=== PATIENT | female | born 1970 | race Caucasian/White ===

== ENCOUNTER 2021-05-08 07:57 | Outpatient (CLI) | payer BC, SELFPAY ==
--- NOTE | ~2021-05-08 | MM_ITS ---
EXAMINATION: MM screening giovany BI w erich HISTORY: Screening mammogram TECHNIQUE: Craniocaudal and mediolateral oblique 3-D tomosynthesis images were obtained and synthetic 2-D images were generated. CAD analysis was submitted and interpreted. COMPARISON: May 10, 2008 bilateral screening mammogram BREAST PARENCHYMAL COMPOSITION: There are scattered areas of fibroglandular density. FINDINGS: There is no evidence of suspicious mass, calcification, or architectural distortion to sugg est malignancy in either breast. There has been no suspicious interval change. IMPRESSION: 1. No mammographic evidence of malignancy. 2. Recommend routine screening mammography in one year. BI-RADS Category 1: Negative Reviewed, dictated and finalized at location A. [employer]
== END 2021-05-08 07:58 | disposition home or self-care (01) ==
LOC: ANHIMG 08:01
PROVIDERS: PCP Family Medicine Adolescent Medicine; Visit Provider Obstetrics & Gynecology
DX: Z12.31 Encounter for screening mammogram for malignant neoplasm of breast (principal)
CPT/HCPCS: 77063; 77067

== ENCOUNTER 2022-06-29 17:27 | Outpatient (CLI) | payer BC, SELFPAY ==
--- NOTE | ~2022-06-29 | MM_ITS ---
EXAMINATION: MM screening giovany BI w erich HISTORY: Screening mammogram TECHNIQUE: Craniocaudal and mediolateral oblique 3-D tomosynthesis images were obtained and synthetic 2-D images were generated. CAD analysis was submitted and interpreted. COMPARISON: 05/08/2021, 05/10/2008 BREAST PARENCHYMAL COMPOSITION:There are scattered areas of fibroglandular density. FINDINGS: No suspicious mass, calcification, or architectural distortion are identified in either dahiana ast to suggest malignancy. There has been no suspicious interval change. IMPRESSION: No mammographic evidence of malignancy. Recommend routine screening mammography in one year. BI-RADS Category 1: Negative Reviewed, dictated and finalized at location .
== END 2022-06-29 17:28 | disposition home or self-care (01) ==
PROVIDERS: Visit Provider Obstetrics & Gynecology
DX: Z12.31 Encounter for screening mammogram for malignant neoplasm of breast (principal)
CPT/HCPCS: 77063; 77067

== ENCOUNTER 2022-11-23 01:00 | Day surgery (SDC) | payer BC, SELFPAY ==
[2022-11-18 10:08] VITALS: BMI 42.3
--- NOTE | 2022-11-18 10:23 | PC.NURSE ---
Report to the Outpatient Waiting Room, entrance under the green pavilion located off [facility], at time 1130_ on date 11/23/22 Planned Procedure Time: _1330. Time changes happen often and if your time is changed the preop area will call you the afternoon before. - You and your visitor will be asked to self-screen and do not enter if you have any COVID symptoms. - A mask is optional within the hospital at this time. Patients may have clear liquids (water, carbonated beverages, clear teas, apple juice) until 3 hours prior to surgery with a maximum of 20 ounces. - No food from midnight until time of surgery - Infants may have breast milk until 4 hours before surgery, formula 6 hours prior to surgery. - Children will be allowed to drink immediately following surgery. If applicable, please bring a bottle or sippy cup to assist with drinking. Juice, water, soda, and popsicles are readily available. For infants on formula, please bring formula the day of surgery. Pacifiers are allowed. Take the following medications with a SIP of water the morning of surgery: _levothyroxine DO NOT STOP ANY OF YOUR OTHER PRESCRIPTION MEDICATIONS PRIOR TO SURGERY ?EXCEPT THE FOLLOWING Medications to discontinue per physician _Vitamins Date to take last dose__11/20/22___ Please no make-up, nail cambodian, hairspray, perfume, deodorant, or body powder the day of surgery. No jewelry (including any body piercings) or valuables the day of surgery, leave them at home. Please take a shower or bath the night before, or the morning of, surgery with an antibacterial soap. Wear comfortable, loose fitting clothing. Children are encouraged to wear pajamas. - Jewelry must be removed prior to entering the operating room. Rings and piercings that are not removed may be cut off. - The hospital will not accept responsibility for valuables. - Please leave all valuables, including medications, at home the day of surgery. If you are going home after surgery, a licensed passenger coach driver must drive you home. - NO public transportation without another adult if you receive anesthesia. - We recommend that an adult stay with you for 24 hours following discharge. - We also recommend that you do not drive, make important decision, drink alcoholic beverages, or take any drugs that were not prescribed by your health care provider for at least 24 hours after your discharge time. For Pediatric surgeries, we recommend two adults accompany the child home. Follow any additional instructions given to you from your surgeon. If you or anyone in your household have experienced Covid symptoms in the past week, please notify your surgeon or the nurse liaison at the phone number below for possible testing. Telephone instructions given to Lashawn Wattsand asked if any additional questions and then verbalized understanding. Patient advised to call surgeon office or pre surgery nurse liaison [phone] if any additional questions.
--- NOTE | 2022-11-23 11:29 | PM.IMHP ---
H&P: HPI History of Present Illness Date/Time: 11/23/22 11:29 Chief Complaint: Heavy bleeding Narrative: 51 y/o who had no bleeding for several months, then resumed monthly menses. Now her menses are heavy and irregular. Ultrasound exam shows an endometrial thickness of 8.6mm. She is here for hysterocopy for D&C. Review of Systems Review of Systems: All systems reviewed & are unremarkable except as noted in HPI and below PMFSH Past Medical History Medical History History of hypothyroidism Surgical History Surgical History History of cervical discectomy History of tubal ligation Social History Social History Smoking status: Never smoker Alcohol intake: never Substance use: never Living arrangements: with family Spiritual care concerns: No Meds Home Medications and Allergies Home Medications Medication Instructions Recorded Confirmed Type calcium carb-vit D3-minerals 600 1 tablet PO DAILY 11/18/22 11/18/22 History mg calcium-400 unit tablet levothyroxine 137 mcg tablet 137 mcg PO DAILY 11/18/22 11/18/22 History multivit-iron 18 mg-folic acid 400 1 tablet PO DAILY 11/18/22 11/18/22 History mcg-calcium 500 mg-minerals tablet (Daily Multiple For Women) Allergies Allergy/AdvReac Type Severity Reaction Status Date / Time Penicillins Allergy Unknown HIVES, Verified 03/30/16 08:23 SWELLING Exam Const: Orientation/consciousness: patient oriented x3 Other: Well-developed, well-nourished female in no acute distress. Neck: Thyroid: thyroid normal Lymphatic: no lymphadenopathy noted (in neck, axilla or inguinal nodes) Resp: Effort & Inspection: normal respiratory effort Auscultation: clear to auscultation bilaterally Cardio: Rate: regular rate Rhythm: regular rhythm Heart sounds: S1 normal heart sound present and S2 normal heart sound present GI: Other: ABD: Soft, nontender, nondistended. No guarding or rebound tenderness. No hepatosplenomegaly. : General: Yes no CVA tenderness Other: External genitalia: normal female hair distribution, without lesion. Urethral meatus: no lesion, non prolapsed. Bladder: no mass, nontender Vagina: well-estrogenized, without lesion or discharge. No cystocele or rectocele. Cervix: no lesion or discharge. Uterus: small, anteverted, freely mobile, nontender Adnexa: no mass or tenderness. Anus/perineum: no lesions, nontender Back/Spine/Pelvis: Back: no CVA tenderness Skin: General skin exam: normal color and no rashes or lesions noted Neuro: General: patient oriented x3 Extrem: Other: Extremities: nontender with no edema Psych: Mental Status: mental status grossly normal Affect: normal affect Assessment and Plan Assessment and plan (1) Menometrorrhagia: Code(s): N92.1 - Excessive and frequent menstruation with irregular cycle Status: Acute Assessment and Plan: A: Irregular and heavy perimenopausal vaginal bleeding with a thickened endometrial complex on ultrasound. P: We discussed medical as well as surgical management options. She opts for the latter. Specifically, I have offered her a hysteroscopy with dilation and sharp curettage. She understands risks of surgery to include risks of anesthesia, risks of pain, infection, bleeding, blood products, thromboembolic phenomena and damage to adjacent structures such as bowel, bladder, ureters, blood vessels and nerves. She understands all these risks and elects to proceed with surgery. (2) Abnormal pelvic ultrasound: Code(s): R93.89 - Abnormal findings on diagnostic imaging of other specified body structures Status: Acute
--- NOTE | 2022-11-23 11:39 | WPDHPUPDATE1 ---
History and Physical Update Update Date/Time: 11/23/22 11:39 History and Physical has been reviewed, including an updated exam of the patient. There are NO changes in the patient's condition. Risks, benefits, and alternatives have been discussed and questions answered. Patient agrees to proceed with procedure.
[2022-11-23] MEDS: LACTATED RINGERS 1,000 ML 30 ML IV CONT (12:00)
[2022-11-23 12:12] VITALS: BP 152/85; PULSE 90; RESP 16; TEMP 36.6; O2SAT 100
[2022-11-23] MEDS: ACETAMINOPHEN 500 MG TABLET 1000 MG PO (12:14)
[2022-11-23] MEDS: LIDOCAINE HCL 1% LOCAL INJ 20 ML VIAL 10 ML INFILTRATE (12:20)
--- NOTE | 2022-11-23 12:24 | P.PNAN_ITS ---
Anes - Initial Pre Proc Eval Procedure: Operation Date: 11/23/22 12:45 Proposed Procedures p Hysteroscopy Dilation and Curettage - Chris Gardner MD Date/Time: 11/23/22 12:24 Surgeon: Chris Gardner MD Pre Op Diagnosis: irregular bleeding Patient Data Age: 51 Gender: F Height: 1.57 m Weight: 105 kg Last Vital Signs Temp 36.6 C 11/23/22 12:12 Pulse 90 11/23/22 12:12 Resp 16 11/23/22 12:12 BP 152/85 H 11/23/22 12:12 Pulse Ox 100 11/23/22 12:12 O2 Del Method Room Air 11/23/22 12:12 Allergies Allergy/AdvReac Type Severity Reaction Status Date / Time Penicillins Allergy Unknown HIVES, Verified 11/23/22 12:11 SWELLING Home Medications Medication Instructions Recorded Confirmed Type calcium carb-vit D3-minerals 600 1 tablet PO DAILY 11/18/22 11/18/22 History mg calcium-400 unit tablet levothyroxine 137 mcg tablet 137 mcg PO DAILY 11/18/22 11/18/22 History multivit-iron 18 mg-folic acid 400 1 tablet PO DAILY 11/18/22 11/18/22 History mcg-calcium 500 mg-minerals tablet (Daily Multiple For Women) Patient hx anesthesia problems: other (hx difficult intubation) Family hx anesthesia problems: none Results Review: All pre-operative results and documents have been reviewed as part of the pre- operative evaluation. [facility] Past Medical History Medical History (Updated 11/23/22 @ 12:27 by Jd Campuzano DO) History of hypothyroidism JAYDEN (obstructive sleep apnea) bipap Surgical History Surgical History History of cervical discectomy History of tubal ligation Social History Social History Smoking status: Never smoker Alcohol intake: never Substance use: never Living arrangements: with family Spiritual care concerns: No Anes - Eval Final PreProcedure Day of Procedure 11/23/22 12:24 Patient weight: morbidly obese Heart: regular rate and rhythm Lungs: clear to auscultation Airway: Mallampati scale class II Neurological: alert and oriented Last oral intake: >/= 8 hours ASA classification: III Emergent: no Anesthetic plan: proceed Anesthesia type and monitoring: general GIVS and standard monitoring Results Review: All pre-operative results and documents have been reviewed as part of the pre- operative evaluation. Informed Consent: The patient's anesthetic plan and its attendant risks and benefits were discussed with the patient/family/POA. Questions were solicited and answers provided to the satisfaction of the patient/family/POA.
[2022-11-23 13:06] VITALS: BP 114/70; PULSE 71; RESP 12; O2SAT 97
--- NOTE | 2022-11-23 13:06 | W.PM.PROC2 ---
Procedure Note - Detailed Date of Procedure 11/23/22 Pre-op Diagnosis Menometrorrhagia Abnormal pelvic ultrasound Post-op Diagnosis Same Procedure Performed Hysteroscopy Dilation and sharp curettage Surgeon Chris Gardner MD Anesthesia MAC and Local (1% lidocaine) Findings Endometrial tissue somewhat thick. Otherwise, the endometrial cavity was unremarkable. Both tubal ostia seen. Description of Procedure The patient was taken to the operating room where she was prepared and draped in the usual sterile fashion in the dorsal lithotomy position. The bladder was drained with a red rubber catheter. A sterile speculum was placed into the vagina. The anterior lip of the cervix was grasped with single-tooth tenaculum. Ten mL of 1% lidocaine was administered in a paracervical block. The cervix was then gently dilated using Hegar dilators until a 7 mm dilator could be passed. Hysteroscopy was performed using sterile saline as a distention medium. Findings are as noted above. Sharp curettage was then performed, and endometrial curettings were collected on a Telfa pad and passed off to be sent to pathology. Hemostasis was excellent. Sponge, lap, needle and instrument counts were correct. The patient was awakened and taken to the recovery room in stable condition. I was present and scrubbed through the entire procedure. Implants None Estimated Blood Loss 5 Drains No Packing No Pathology Yes (Endometrial curettings) Complications None Condition Stable Disposition PACU
[2022-11-23 13:35] VITALS: BP 109/71; PULSE 64; O2SAT 100
[2022-11-23 14:05] VITALS: BP 110/70; PULSE 64
== END 2022-11-23 14:12 | disposition home or self-care (01) ==
PROVIDERS: Visit Provider Obstetrics & Gynecology
PROC: 0U5B8ZZ Destruction of Endometrium, Via Natural or Artificial Opening Endoscopic (ICD-10-PCS; CPT 58563; principal; 2022-11-23 12:45)
DX: N92.1 Excessive and frequent menstruation with irregular cycle (principal); E03.9 Hypothyroidism, unspecified; G47.33 Obstructive sleep apnea (adult) (pediatric); E66.01 Morbid (severe) obesity due to excess calories; Z68.41 Body mass index [BMI] 40.0-44.9, adult
CPT/HCPCS: 58558; 88305; A9270; J2250; J2704; J7120

== ENCOUNTER 2023-08-13 07:28 | Outpatient (CLI) | payer BC, SELFPAY ==
--- NOTE | ~2023-08-13 | MM_ITS ---
EXAMINATION: MM screening giovany BI w erich HISTORY: Screening mammogram TECHNIQUE: Craniocaudal and mediolateral oblique 3-D tomosynthesis images were obtained and synthetic 2-D images were generated. CAD analysis was submitted and interpreted. COMPARISON: June 29, 2022, May 08, 2021 bilateral screening mammogram examinations BREAST PARENCHYMAL COMPOSITION: There are scattered areas of fibroglandular density. FINDINGS: There is no evidence of suspicious mass, calcification, or architectural distortion to sugg est malignancy in either breast. There has been no suspicious interval change. IMPRESSION: 1. No mammographic evidence of malignancy. 2. Recommend routine screening mammography in one year. BI-RADS Category 1: Negative Reviewed, dictated and finalized at location A.
== END 2023-08-13 07:29 | disposition home or self-care (01) ==
LOC: ANHIMG 07:33
PROVIDERS: Visit Provider Obstetrics & Gynecology
DX: Z12.31 Encounter for screening mammogram for malignant neoplasm of breast (principal)
CPT/HCPCS: 77063; 77067